=== PATIENT | female | born 1965 | race African-American/Black ===

== ENCOUNTER 2020-01-15 19:24 | Inpatient (IN) | payer OTHER ==
[~2020-01-15] VITALS: Ht 162.6 cm; Wt 47.1 kg
[2020-01-15 19:29] VITALS: BP 97/52
--- NOTE | 2020-01-15 21:12 | NUR ---
REQUESTED [facility] TO FAX MED LIST.
[2020-01-16 07:45] VITALS: BP 120/71
[2020-01-16 08:05] VITALS: BP 111/67
[2020-01-16 13:53] VITALS: BP 141/83
[2020-01-16 20:42] VITALS: BP 136/98
--- NOTE | 2020-01-16 21:06 | NUR ---
Pt. admitted from ER with hx of COVID and severe dementia. Admitted via [facility] from [facility]. Pt. repeatedly trying to get off cart, out of bed despited bed rails up X4, lurching, unsteady gait. Attempted to throw herself over rail but was caught by nurse. Medicated with 20mg geodon per order. Later in shift she was sitting in gerichair with lap justyna in place when she pushed herself upwards through the lapbuddy and half stood in chair with chair tipping back. 1:[address] Abdullahi, additional 20 mg geodon given per L buttock per order. Pt nonverbal most of shift with 1-2 word confused statements. Does eat without difficulty when fed, drank adequately with straw. No verbal/behaviors suggestive of SI/HI. Pt. sleeps in chair but quickly becomes noncompliant with safety precautions and demonstrates very unsafe behaviors. Breath sounds clear without s/o resp distress. Reg HR auscultated. Color pink with brisk capillary refill and palpable peripheral pulses. Yellow urine per brief. Active bowel sounds over soft, flat abdomen. reports wt loss of 16 # since September. Lurching, unsteady gait when she attempts to ambulate.
--- NOTE | 2020-01-17 05:32 | NUR ---
Assumed care of pt @ 1900. Pt calm et cooperative this shift. Took medication crushed in yogurt this shift. Ambulation not observed. VSWNL. health assessment with no abnormalities other than previously noted. Unable to assess SI/HI/AVH but pt does not demonstrate any signs or symptoms of acute emotional distress at present time. Currently resting in carlitos-chair with eyes open. Has 1:1 while awake for safety. Will continue to monitor per unit protocol.
[2020-01-17 12:10] VITALS: BP 136/82
--- NOTE | 2020-01-17 14:14 | NUR ---
Patient received PRN Zyprexa approximately 1.5 hours ago. Approximately 50% effective in reducing agitation and impulsive behaviors. Patient now becoming increasingly agitated. 1:1 sitter at side. Attempted to provide busy pad, speak to patient, play music. None of which has been effective. Spoke with Dr. Abdullahi. Order obtained for Ativan 1mg po 1x dose now for agitation.
--- NOTE | 2020-01-17 17:44 | NUR ---
1730 RESUMMED CARE FROM OVERNIGHT SHIFT THIS AM, PATIENT WAS BROUGHT UP FROM THE COVID FLOOR TO US. PATIENT IS A ONE TO ONE SHE WAS TRYING TO GET OUT OF BIRDIE CHAIR. PATIENT IS VERY IMPULSIVE AND WEAR A HELMET AND NEEDS CONSTANT MONITORING. PATIENT IS 51 AND HAS DEMENTIA WHICH SHE IS DECLINING AND WILL POSSIBLY NEED HOSPICE. PATIENTS ABDOMEN SOFT ROUND BOWEL SOUNDS PRESENT LUNGS CLEAR. PATIENT HAD A IM OF OLANZAPINE AT 1305 DUE TO AGITATION AND TRYING TO GET OUT OF LAP ALIREZA. PATIENT UNABLE TO TELL ME ABOUT SI/HI/AH/VH AT PRESENT DUE TO COGNITIVE AND DEMENTIA. PATIENT WAS MORE COOPERATIVE THIS EVENING AND SLEPT A FEW HOURS. WILL CONTINUE TO MONITOR PATIENT FOR SAFETY AND BEHAVIORS.
--- NOTE | 2020-01-17 19:25 | NUR ---
Alerts to name only. Pushing self up in recliner through lap justyna. Up with sitter walking with staggering gait in room. Occassional verbalization. Took meds whole with H2O and applesauce, eats well when being fed. Protective helmet in place, removed to inspect scalp, no skin irritations noted, helmet replaced. Breath sounds clear t/o, bilaterally equal. Reg HR auscultated. Color pale pink with brisk capillary refill and palpable peripheral pulses. Brief in place, incontinent of large, brown stool. Active bowel sounds over soft, flat abdomen, buttocks slightly reddened. Multiple bruises over arms with old scabs on shins. Midmorning nurse fishing manager Jatin brought pt with sitter back to [facility] d/t staffing issues.
[2020-01-17 19:42] VITALS: BP 121/63
--- NOTE | 2020-01-18 04:47 | NUR ---
Assumed care of pt @ 1900. Pt calm et cooperative this shift. Took medications crushed in pudding without difficulty. Ambulates with assistance of gerichair. VSWNL. Health assessment with no abnormalities noted at present time. Unable to assess SI/HI/AVH due to cognitive deficit but pt does not demonstrate any signs or symptoms of acute emotional distress at present time. [facility] with eyes closed. Will continue to monitor per unit protocol.
[2020-01-18 07:55] VITALS: BP 174/54
--- NOTE | 2020-01-18 12:34 | NUR ---
Care assumed of patient at 0715: Patient seated in carlitos chair with 1:1 sitter at side, at start of shift. Nonverbal, occasionally responds to name being called. Protective helmet in place throughout the shift. Restless, impulsive behaviors observed. Placing legs off side of chair, scooting buttock back in attempt to sit on top of chair, slide self forward, remove lap justyna. Needing several re-directions and assist by sitter. Patient eating breakfast and lunch well, fed by staff. Took AM medication crushed without difficulty. Patient incontinent of bladder. Resistive with kaushal care and linen change. Attempting to lower self to the floor and crawl several times. Patient was able to take a walk about the hallways with sitter for approximately 10 minutes then return back to chair.
--- NOTE | 2020-01-18 16:01 | H ---
[facility] [place] [address] HISTORY AND PHYSICAL Name: JOZEF COLE Room #: 528B-B ADM IN M.R.#: [id number] Admission: 01/16/20 Attend Phys: Shalom Abdullahi DO Discharge: Date of : 63 Report #: [id number] THIS REPORT FOR: cc: Iron Torres MD [facility] Dragan Landin Andrew H. DO ~ CC: Shalom Landin DATE OF SERVICE: 01/16/2020 INPATIENT PSYCHIATRIC EVALUATION ATTENDING PHYSICIAN: Shalom Abdullahi DO DOORSHAKER: Dr. Lobo. Of note, the patient has temporarily been housed in the Surgical Intensive Care Unit, room #225 due to her COVID positive status that has been determined to be historic and the patient does not need isolation. SOURCES OF INFORMATION: Telephone interview with the . Some notes from [facility]. The patient has very advanced dementia and can give no meaningful history or conversation. HISTORY OF PRESENT ILLNESS: This is a 54-year-old female sent out from [facility]. The patient was briefly brought to the Emergency Room at [facility] by accident. She received some basic lab work there and then was sent over to [place] for COVID-19 testing. According to the , the patient had been hospitalized at [facility] in April and then developed COVID infection, so she was there in May. He also states she became hypotensive, tachycardic due to haloperidol injection. I do not have a list of the patient's lab work from [facility]. The patient is nonverbal, which is her baseline. The patient was born in [place], [place], raised in [place]. She has three grown children. She has a bachelor's degree in [employer]. She worked for the [employer]. She developed early Alzheimer's dementia according to Yosvany in 2015. The patient did not have any history of tobacco or recreational drug use, some social drinking in the past prior to her dementia, does not have history of physical, sexual, or emotional abuse. She has been 30 years. According to the , there is no family history of mental illness or early dementia. VITAL SIGNS: Today; temperature 36.8, pulse 63, respirations 16, blood pressure 111/67, O2 sat 96%. [facility] [address] [place] [address] HISTORY AND PHYSICAL Name: JOZEF COLE Room #: 528B-B [facility] IN ..#: [id number] Admission: 01/16/20 Attend Phys: Shalom Abdullahi DO Discharge: Date of : 63 Report #: [id number] MENTAL STATUS EXAMINATION: This is a well-developed, ill-appearing female, wearing a helmet due to recurrent falls. Attention fair. Concentration impaired. Speech: Nonverbal. Thought process and thought content, unable to ascertain. The patient does respond to noxious stimuli. Unable to assess for suicidality, homicidality, auditory, visual, or tactile hallucination. Did not seem to be self harmful. Memory unable to test. Insight impaired, judgment impaired. Fund of knowledge well below average. ADDITIONAL PSYCHIATRIC HISTORY: Includes impulse disorder, unspecified anxiety disorder, dysphasia. MEDICATIONS: At assisted were as follows: Acetaminophen 650 mg p.o. 3 times a day for pain; Depakote 125 mg in the afternoon, 125 mg in the evening, 250 mg at bedtime, so she was on 250 b.i.d., I have increased that to 375 b.i.d. Other medications donepezil 10 mg oral daily for dementia, I have discontinued that. In addition adult suppository p.r.n., hydrocortisone cream 2.5% applied to rash as needed for rash, potassium chloride extended release 20 mEq by mouth 2 times a day, levothyroxine 125 mcg daily for hypothyroidism, lisinopril 40 mg p.o. daily for hypertension, magnesium citrate p.r.n., memantine 10 mg oral twice daily I have discontinue that, metronidazole cream for rash. She is on mirtazapine 7.5 mg at bedtime, Seroquel 50 mg p.o. at bedtime, trazodone 50 mg p.r.n. insomnia. She is also on olanzapine 5 mg q. 2 hours p.r.n. for agitation and anxiety. requests no code. ALLERGIES: CODEINE. Additional history from assisted, apparently she, according to Cristina, had thrown a couple televisions on the floor, had been restless, pacing and redirectable. states she has been akathisic for quite some time. She states that the TVs were not secured and she does exhibit what I would term stimulus-bound phenomenon where she sees something shiny or other people's food or stuff that smells good, she will grab at it. This is seen in advanced dementias particularly frontotemporal and some Alzheimer's cases. FORMULATION: A 54-year-old female tragic early Alzheimer's disease, really at almost advanced age with behavioral disturbance. DIAGNOSES: Major neurocognitive disorder due to early Alzheimer's disease with behavioral disturbance. ADDITIONAL DIAGNOSES: Include recent falls, hypertension, dysphasia. PLAN: Evaluate, stabilize, obtain collateral. Regarding her medications, we will increase Depakote to 375 mg Sprinkles twice per day, Seroquel will increase to 50 mg twice per day, will continue lisinopril 40 mg daily, Synthroid 125 mcg daily, trazodone 50 mg at bedtime p.r.n. Hospitalist is consulted. [facility] [address] [place] [address] HISTORY AND PHYSICAL Name: JOZEF COLE Room #: 528B-B ADM IN .R.#: [id number] Admission: 01/16/20 Attend Phys: Shalom Abdullahi DO Discharge: Date of : 63 Report #: [id number] ESTIMATED LENGTH OF STAY: 10-14 days. Monitor her periodically for laboratory changes. I will dictate an addendum with the labs done at [place] later. Time spent on this case is approximately 60 minutes, greater than 50% of time was coordination of care, review of records, discussion with . <ELECTRONICALLY SIGNED> By: Shalom Abdullahi DO 01/18/20 1601 1329 1515 Shalom Abdullahi, /nt
[2020-01-18 19:34] VITALS: BP 101/50
[2020-01-18 21:46] VITALS: BP 164/54
--- NOTE | 2020-01-19 08:28 | NUR ---
PT TOOK MEDS THIS AM CRUSHED IN YOGART. PT ABLE TO SAY ONE WORDS LIKE CRAZY. PT LUNGS CLEAR. PT HAS HELMENT ON FOR PROTECTION. PT ALERT THIS AM, NOT ABLE TO TELL ORIENTATION. PT LIKES TO GRAB AT STAFF WALKING BY. PT HAS LAP ALIREZA ON FOR FALL PROTECTION. PT DOES PUSH SELF UP IN THE CHAIR. PT NEEDS FEED DUE TO GRABBING AT THE TRAY.
[2020-01-19 09:00] VITALS: BP 111/53
--- NOTE | 2020-01-19 12:43 | NUR ---
AFTER LUNCH WALKED PT AROUND UNIT. PT DIDN'T WANT TO SIT ON THE TOILET. PT WAS INCON OF URINE FULL BRIEF. PT SKIN INTACT. PT ALLOWED X2 STAFF TO ASSIST IN CHANGING HER BRIEF AND NEW YELLOW SHIRT. PT HAS SPECIAL HELMENT ON FOR PROTECTION IF FALLS. PT WANTED TO LAY DOWN IN BED. PT LAYED DOWN AND COVERED WITH BLANKET. PT STILL 1:1 CARE WHILE AWAKE.
--- NOTE | 2020-01-19 15:14 | NUR ---
PT NAPPED AND GETTING UP AT THIS TIME. PT PUT IN BIRDIE CHAIR WITH NESSA LAY, PT HAS 1:1 CARE WHILE AWAKE.
[2020-01-19 20:49] VITALS: BP 99/44
--- NOTE | 2020-01-20 01:18 | NUR ---
Assumed care of patient this pm shift. Patient is confused. Alert and oriented to self. Patient takes medications crushed in pudding. Patient is considered a falls risk. Falls precautions in place. Patient is on a 1:1 with sitter. Assessment shows no signs of acute distress. Patient is mostly nonverbal and does not answer questions appropriately. Patient ambulates via wheel chair or carlitos chair. We will continue to monitor per hospital policy.
[2020-01-20 09:46] VITALS: BP 117/77
--- NOTE | 2020-01-20 19:43 | NUR ---
0700 ASSUMED CARE OF PATIENT, PATIENT IN DAYROOM AT THAT TIME WITH LAP ALIREZA IN PLACE WITH 1:1 AT CHAIR SIDE. PATIENT ATTEMPTING TO GET OUT OF CHAIR. PATIENT SITS QUIETLY AT TIMES. PATIENT INCONTIENENT AND ASSIT X1 WITH CARES. PATIENT EATS ALL MEALS WELL AND MEDICATIONS GIVEN CRUSHED WITHOUT DIFFICULTY. LS CLEAR, BS ACTIVE. PATIENT UNABLE TO ANSWER QUESTIONS.
[2020-01-20 20:31] VITALS: BP 93/54
--- NOTE | 2020-01-21 05:25 | NUR ---
Assumed care on 01/20/20 @ 19:30, seated in carlitos chair, being seated upright with feet on the floor. Lap justyna in place with opening in the front. VSS, lung sounds clear bilat. Cooperates with assessment, takes meds crushed in yogart, then finished the yogart, being fed. Incontinent of bladder. Says few words, but cooperative with following instructions. Slept well overnight, will continue to monitor as per unit protocol.
--- NOTE | 2020-01-21 10:29 | NUR ---
EDGARDO and Dr. Cowan participated in a phone meeting with the Pt's , Boyd Peterson. An update was given on the Pt and the recommendation for hospice. Mr. Peterson stated he would like to do some research on hospice companies and would get back with EDGARDO on the matter. Mr. Peterson was provided education about hospice. Mr. Peterson was informed the Pt would be ready for d/c by the end of the week. EDGARDO will follow up with the [facility] concerning Pt's level of care and preferred hospice companies.
--- NOTE | 2020-01-21 17:09 | NUR ---
EDGARDO spoke with Cinthia Ho, , admissions at [facility]. EDGARDO provided a verbal update on the Pt and informed of the recommendation for hospice. Cinthia stated she would send out the referrals for hospice to [facility]. Cinthia stated she would inform EDGARDO which company would be providing service upon approval. Cinthia did share a concern about the Pt's behaviors. EDGARDO informed Cinthia about Dr. Cowan perscribing scheduled ativan to assist with calming and reduction of behaviors. EDGARDO also informed that it has been observed that since this addition Pt has been calmer and compliant with cares. Cinthia did not have any questions concerning this matter and stated they could accept the Pt back on Monday. D/C scheduled for 01/27/2020 @1030am. EDGARDO will schedule transportation with [facility].
--- NOTE | 2020-01-21 19:26 | NUR ---
0700 ASSUMED CARE OF PATIENT, PATIENT IN DAYROOM IN BIRDIE CHAIR. PATIENT ATTEMPT TO GET OUT OF CHAIR MULTIPLE TIME. 1:1 AT CHAIR SIDE. PATIENT TAKES MEDICATION CRUSHED WITHOUT DIFFICULTY. EATS ALL MEALS 100%. SLEEPS IN CHAIR OFF AND ON. VS WNL. PATIENT UNABLE TO ANSWER QUESTION. FALL RISK IN PLACE WITH LAP ALIREZA ON AND YELLOW SHIRT ON.
[2020-01-21 19:53] VITALS: BP 133/54
--- NOTE | 2020-01-22 03:11 | NUR ---
Assumed care of patient this pm shift. Patient is mostly nonverbal. She does speak out intermittently but does not answer questions appropriately. Patient does not appear to have hi/si. Patient does not appear to be in pain. Patient takes medications crushed in applesauce or pudding. Patient is not continent of bowel or bladder. Patient is considered a falls risk. Falls precautions are in place. Patient is a 1:1. Assessment shows no signs of acute distress. Vital signs are stable. Affect is variable. We will continue to monitor per hospital policy.
--- NOTE | 2020-01-22 13:07 | NUR ---
ASSUMED CARE AT 0700 THIS MORNING. PT. SLEEPY THIS MORNING IN A RECLINGING CHAIR. AFTER BREAKFAST, SHE WAS TAKEN TO HER ROOM AND JULIOCESAR CARE PERFORMED BY 2 STAFF. SHE REMAINED SLEEPY AND FELL ASLEEP IN HER BED AND WAS ALLOWED TO REST FOR ABOUT 1.5 HOURS. SHE THEN BECAME RESTLESS AND WAS GOTTEN UP INTO THE RECLINING CHAIR AND TAKEN TO THE DINING ROOM. SHE EATS WELL, AND TOOK HER MEDICATIONS WITHOUT PROBLEMS NOTED. SHE HAS BEEN RESTLESS THIS AFTERNOON.
--- NOTE | 2020-01-22 17:39 | NUR ---
ASSUMED CARE AT 0700 THIS MORNING. PT. UP IN RECLINING CHAIR, SLEEPING. SHE ATE BREAKFAST AND THEN WENT TO BED AND SLEPT MOST OF THE MORNING. SHE ATE WELL AT LUNCH AND ATE 60 % SUPPER. SHE HAS BEEN SLEEPY TODAY. SHE HAS BEEN CHANGED SEVERAL TIMES TODAY. SHE HAS BEEN 1:1 WHILE AWAKE.
[2020-01-22 19:42] VITALS: BP 117/47
--- NOTE | 2020-01-23 01:47 | NUR ---
PATIENT SAT PARTIALLY RECLINED IN DAYROOM SLEEPING OFF AND ON TONIGHT. SHE HAS BEEN DROWSY. SHE HAD APPLESAUCE FOR HS SNACK AND WATER. SHE TOOK HER HS MEDS CRUSHED IN APPLESAUCE ALSO. SHE DOES NEED FEEDING ASSISTANCE. INCONTINENCE CARES DONE. PATIENT HAS WHAT APPEARS TO BE AN OLD PERMANENT OPENING IN THE SKIN MAYBE WHERE A CYST BEEN AT END OF TAIL BONE. NO REDNESS OR DRAINAGE. PATIENT CONTINUES TO BE A 1:1 WA. PATIENT PLACED IN BED AROUND 2230 TONIGHT AND 1:1 SELF SEALING FUEL TANK BUILDERNICOLAS STAYED WITH PATIENT UNTIL SHE FELL ASLEEP. PATIENT IS BEING REPOSITIONED FOR COMFORT. BED IN LOW POSITION AND BED RAILS UP WITH BED ALARM ON D/T PATIENT IS A FALL RISK AND VERY IMPULSIVE. SHE IS A/O TO SELF ONLY. SHE OCCASIONALLY WILL ANSWER YES AND NO QUESTIONS. VSS. WAS TOLD BY DAYS THAT SHE ATE 100% AT MEALS. NO BM SO FAR TONIGHT. FREQUENT ROUNDING TO ASSESS SAFETY AND STATUS OF PATIENT. PT DENIES PAIN AND DOES NOT APPEAR TO HAVE ANY BASED ON BODY LANGUAGE. NO SI/HI/AVH EVIDENCE NOTED TONIGHT.
[2020-01-23 06:07] VITALS: BP 116/56
[2020-01-23 08:08] VITALS: BP 140/77
--- NOTE | 2020-01-23 08:30 | NUR ---
PT SITTING OUT IN DINING ROOM AND NEEDING FED BREAKFAST. PT EATING WELL. PT DRINKING THIN LIQUIDS WITHOUT ISSUES. PT TAKING MEDS IN YOGART CRUSHED. PT LUNGS CLEAR WITHOUT COUGH. PT HAS SCRATCHES AND BRUISES OF DIFFERENT STAGES TO LOWER EXT. PT NON-VERBAL AT THIS TIME.
--- NOTE | 2020-01-23 13:04 | NUR ---
PT IS VERY SEDATED RESTING IN RECLINER CHAIR. HELD LORAZEPAM 1MG PO AT THIS TIME. DR. IGLESIAS AWARE.
--- NOTE | 2020-01-23 16:50 | NUR ---
PT EYES OPEN AND LOOKING AROUND. PT SITTING UP IN CHAIR TRYING TO GET OUT OF CHAIR. PT HAS LAP ALIREZA ON FOR FALL PROTECTION.
[2020-01-23 19:45] VITALS: BP 93/42
--- NOTE | 2020-01-24 01:58 | NUR ---
Assumed care on 01/23/20 @ 19:15, seated in carlitos chair in the day room with lap justyna on, fastened in the front. Is a fall risk, and dressed in a yellow shirt and socks. Compliant with medication crushed in pudding. Cannot answer mental health assessment questions, and is predominately non-verbal. Incontinent of Bowel and bladder, given incontinent care several times. Feeder, provided snack which she ate 100% at HS. Retired to bed @ , bed in low position, bed alarm set. Will continue to monitor often as per unit protocol.
[2020-01-24 09:22] VITALS: BP 112/70
--- NOTE | 2020-01-24 11:31 | NUR ---
RT Progress Note- Gabriella is not an active participant in either the milieu or recreation groups d/t cognition. LAB ASST has instead worked with pt 1;1 to provide sensory activities including music and a sensory mat. Patient facial expressions unchanged overall during music and observed to attempt to eat the sensory mat. Patient does respond to socialization by reaching out for physical contact, but does not make appropriate eye contact. LAB [facility]ST will continue to provide 1;1 support during her admission.
--- NOTE | 2020-01-24 13:24 | NUR ---
EDGARDO spoke with Pt's , Yosvany Peterson. He informed he would transport Pt to [facility]. Yosvany stated he would be here at 9am on 01/27/20. Time informed he will utilize [facility] hospice .
[2020-01-24 15:12] VITALS: BP 112/70
--- NOTE | 2020-01-24 15:30 | NUR ---
ASSUMED CARE AT 0700 THIS MORNING. PT. HAS BEEN IN THE RECLINING CHAIR MUCH OF THE DAY. SHE HAS BEEN RESTING MUCH OF THE TIME. AT TIMES SHE IS REALLY RESTLESS. SHE WILL EAT WELL. SHE TAKES HER MEDICATIONS CRUSHED AND IN PUDDING OR APPLESAUCE. NO PROBLEM NOTED.
[2020-01-24 19:45] VITALS: BP 111/60
--- NOTE | 2020-01-25 05:39 | NUR ---
ASSUMED CARE OF PT AT 1900. PT IS A/O X1 AND IS UNABLE TO STAND OR BEAR WEIGHT ON HER FEET. APPEARS VERY LETHARGIC AND HAS A VERY FLAT EFFECT. APPEARS RESTLESS AND MOVES AROUND A LOT. IS NON VERBAL AND DOES NOT ANSWER TO QUESTIONS. USES THE ASSISTANCE OF A BIRDIE CHAIR WITH A GAITBELT FOR SAFETY. MEDICATIONS WERE GIVEN CRUSHED IN PUDDING. INCONTINENT OF BOWEL AND BLADDER. WEARS A PULL UP. AT THIS TIME PT IS LYING IN HER BED AND APPEARS TO BE SLEEPING. WILL CONTINUE TO MONITOR. CANNOT ASSESS FOR SI/HI OR AVH DUE TO MENTAL STATUS AND PT IS NOT RESPONDING VERBALLY.
[2020-01-25 10:47] VITALS: BP 111/50
[2020-01-25 20:22] VITALS: BP 99/62
--- NOTE | 2020-01-25 20:45 | NUR ---
Able to state name only. Spent most of day sleeping in recliner with lap justyna on. At times difficult to wake up, 1700 dose of lorazepam held d/t somulence. More awake and alert at end of shift. Decreased PO intake t/o day, diet changed to mechanical chopped. Requires feeding for PO intake. Breath sounds clear. Reg HR auscultated. Color pink with brisk capillary refill and palpable peripheral pulses. Active bowel sounds over soft, flat abdomen. Multiple bruises/scabs over arms and legs. Buttocks slightly pink, no skin breakdown.
--- NOTE | 2020-01-26 04:40 | NUR ---
ASSUMED CARE OF PT AT 1900. PT IS A/O X1 AND IS A MAX ASSIST TO THE BIRDIE CHAIR. RESTLESS AND ANXIOUS. LAP ALIREZA USED WHILE IN CHAIR FOR SAFETY. ROOM AIR. PT ANSWERS AT TIMES BUT IS AT TIMES NON-VERBAL. PT AT THIS TIME IS LYING IN HER BED AND APPEARS TO BE SLEEPING. WILL CONTINUE TO MONITOR.
[2020-01-26 11:29] VITALS: BP 102/53
--- NOTE | 2020-01-26 14:52 | NUR ---
PATIENT CARE ASSUMED AT 0700 - PATIENT WAS SLEEPING IN BIRDIE CHAIR IN DINING MCKNIGHT AT ARRIVAL ON UNIT. SHE WAS SLEEPING AT THIS TIME. AWOKE FOR BREAKFAST - POOR APPETITE - ALET TO SELF - UNABLE TO RESPOND TO QUESTIONS ADDRESSED TO HER. STAFF ASSISTED WITH FEEDING. MORNING MEDICATIONS ADMINISTERED CRUSHED IN APPLESAUCE. PATIENT WAS RESTLESS EARLY ON IN MORNING - ATTEMPTING TO CLIMB OUT OF BIRDIE CHAIR. STAFF HAD TO REDIRECT - AFTER MEDICATION PASSED PATIENT BECAME SEDATED ONCE AGAIN. HELD ATIVAN SCHEDULED AT 1300 SINCE PATIENT WAS SLEEPING ONCE AGAIN. PATIENT CURRENTLY SLEEPING IN CHAIR - STAFF MONITORING IN DINING MCKNIGHT.
[2020-01-26 20:00] VITALS: BP 105/87
--- NOTE | 2020-01-27 02:46 | NUR ---
PATIENT WAS UP IN BIRDIE CHAIR WITH LAP ALIREZA ON AND FASTENED IN THE FRONT. PATIENT RESPONDS TO NAME. SHE KEPT LOOKING UP TOWARDS CEILING IN DINING ROOM TONIGHT. I ASKED HER IF SHE WAS SEEING SOMETHING. SHE MUMBLED YES AND THEN OTHER SPEECH I COULD NOT UNDERSTAND. BELIEVE PATIENT MAY HAVE BEEN HAVING VISUAL HALLUCINATION. SHE REMAINED CALM AND QUIET THIS EVENING. PATIENT WAS GIVEN HER MEDS CRUSHED IN PUDDING. PATIENT DID EAT ALL OF HER PUDDING AND HAD 240ML OF WATER TO DRINK. INCONTINENCE CARES DONE ROUTINELY. NO BM SO FAR TONIGHT BUT HAS BEEN INCONTINENT. BARRIER CREAM APPLIED TO BONY RED AREA OF BUTTOCKS FROM SITTING. PATIENT APPEARS TO BE RESTING COMFORTABLY WITH EYES CLOSED IN BED. SIDE RAILS UP. TYLENOL 650MG PO GIVEN FOR COMFORT TO REST AND POSSIBLE GENERALIZED PAIN /. PT HAD TRAZADONE PO ALSO. ROUTINE ROUNDS TO ASSESS SAFETY AND STATUS OF PATIENT. WILL CONTINUE TO MONITOR.
--- NOTE | 2020-01-27 05:12 | NUR ---
PATIENT BECOMING RESTLESS IN BED AT 0430. INCONTINENCE CARES DONE. PATIENT HAS VOIDED 3 TIMES THRU NIGHT WITHOUT BM. PATIENT WAS CLEANED AND NEW BRIEF AND CLOTHES APPLIED. PATIENT UP IN BIRDIE CHAIR WITH CHAIR ALARM ON AND WORKING AND BIRDIE CHAIR LOCKED. PATIENT SITTING IN DINING ROOM. PATIENT HAS LAP ALIREZA ON FOR SAFETY AND IS SITTING QUIETLY WITH EYES CLOSED. SHE DOES RESPOND TO HE NAME AND DOES ANSWER SOME YES/NO QUESTIONS. PATIENT'S , [facility] TO PICK PATIENT UP AT 0900 TO TRANSFER TO [facility] TO BE PLACED ON HOSPICE WITH [facility]. CONTINUING TO MONITOR.
[2020-01-27 07:47] VITALS: BP 108/62
[2020-01-27] MEDS ORDERED: ACCUPRIL40 MG PO (08:44)
[2020-01-27] MEDS ORDERED: SEROQUEL 100 M100 M1 PO (08:45)
[2020-01-27] MEDS ORDERED: DEPAKOTE SPRIN125 MG PO (08:45)
[2020-01-27] MEDS ORDERED: K-DUR 20 MEQ T20 MEQ PO (08:46)
[2020-01-27] MEDS ORDERED: LORAZEPAM 1 MG T1 MG PO (08:46)
[2020-01-27] MEDS ORDERED: SYNTHROID125 MC1 PO (08:47)
[2020-01-27] MEDS ORDERED: MIRALAX17 GM PO (08:47)
--- NOTE | 2020-01-27 10:50 | NUR ---
ASSUMED CARE AT 0700 THIS MORNING. PT. UP IN RECLINING CHAIR. MEDICATIONS, CRUSHED AND GIVEN TO PT. IN PUDDING. SHE TOOK THE MEDICATIONS WITHOUT PROBLEMS. SHE WAS CLEANED UP. HER WAS HERE TO POWER GENERATION TURBINE ROOM OPERATOR THE PT. TO TRANSPORT TO [facility]. [facility]. ALL HER BELONGS, SCRIPTS, D/C SUMMARY, SENT WITH HER. THEY LEFT IN THE FAMILY VEHICLE.
--- NOTE | 2020-01-28 23:07 | D ---
[facility] [place] [address] DISCHARGE SUMMARY Name: JOZEF COLE Room #: 528B-B DIS IN M.R.#: [id number] Admission: 01/16/20 Attend Phys: Shalom Abdullahi DO Discharge: 01/27/20 Date of : 63 Report #: [id number] THIS REPORT FOR: cc: Iron Torres MD [facility] Dragan Landin Andrew H. DO ~ DATE OF SERVICE: 01/27/2020 INPATIENT PSYCHIATRIC DISCHARGE SUMMARY ATTENDING PSYCHIATRIST: Shalom Abdullahi DO. [employer] REPAIRER: Aguila Zamora MD DISCHARGE DIAGNOSES: Major neurocognitive disorder, likely due to early Alzheimer's disease, end-stage, with behavioral disturbance, improved. ADDITIONAL DIAGNOSES: As follows, hypertension, on lisinopril; hypothyroidism, on Synthroid; severe protein-calorie malnutrition due to the dementia. DISCHARGE PLAN: The patient is discharging back to [facility] in [place], [place] . PROGNOSIS: Poor to terminal. DISCHARGE DIET: Mechanical, chopped, thin liquids. The patient requires feeding assistance. Gait is assisted, but she sits mainly. DISCHARGE MEDICATIONS: As follows, lisinopril 40 mg p.o. daily for hypertension, hold if systolic blood pressure less than 100; Depakote Sprinkles 500 mg p.o. b.i.d. for mood stabilization; quetiapine fumarate 100 mg p.o. b.i.d.; lorazepam 1 mg p.o. at 0600, 1300, 1800, hold if oversedation; potassium chloride 20 mEq p.o. b.i.d. for supplementation; polyethylene glycol 17 g p.o. daily dissolved in 8 ounces of water for bowel motility; levothyroxine 125 mcg oral daily. The patient's medical and psychiatric care will be provided by the receiving facility. PERTINENT LABORATORY WORK: From this admission, Depakote level on January 25 was 65. COVID-19 PCR serology was positive, but she has been persistently positive so isolation was not required. REASON FOR ADMISSION: Back on 26 of January is as follows: The patient was originally brought to [facility]. Basic lab work was done there. [facility] [address] [place] [address] DISCHARGE SUMMARY Name: JOZEF COLE Room #: 528B-B [facility] IN M.R.#: [id number] Admission: 01/16/20 Attend Phys: Shalom Abdullahi DO Discharge: 01/27/20 Date of : 63 Report #: [id number] Apparently, she had been nonredirectable, throwing things including television. This was somewhat refuted by her stating that the television to the nursing facility were not clamped down, secured and were easily dislodged by a dementia patient. HOSPITAL COURSE: The patient was admitted to Geriatric Psychiatry Unit. The patient had a fairly uneventful stay. We increased her Depakote, titrate her on Seroquel to the discharge doses mentioned. Lap justyna was required fairly often as the patient was attempting to get up in an unsafe manner. Unfortunately, other than feeding well, the patient was not able to participate due to the grave degree of her dementia. She is mostly nonverbal, occasionally will say some phrases. The was counseled by myself and social service director that it is time for hospice services to be initiated. He agreed to have that done in the nursing facility. CONDITION ON DISCHARGE: Again poor, but expected given her progressive dementia. PHYSICAL EXAMINATION: VITAL SIGNS: On the day of discharge, temperature 36.5, pulse 72, respirations 16, BP 108/60, O2 sat 92%. MUSCULOSKELETAL: Seated in chair. MENTAL STATUS EXAMINATION: This is a well-developed, unkempt female appearing much older than stated age. Attention limited. Concentration limited. Speech intermittent at best. Thought process and thought content were frequently nonlinear. Intermittent psychomotor agitation. No psychomotor retardation. Unable to assess well for suicidality or homicidality, but no self-harm behavior to others was noted at the time of discharge. Again, difficult to assess well for external stimuli, auditory, visual, or tactile hallucinations, but they suspected. Memory grossly impaired. Insight impaired, judgment impaired. Fund of knowledge below average. PROGNOSIS: For this patient is poor to terminal with less than 6 months life expectancy. <ELECTRONICALLY SIGNED> By: Shalom Abdullahi DO 01/28/20 [id number] Shalom Abdullahi DO /nt
== END 2020-01-27 09:00 | disposition hospice, home (50) | DRG 56 ==
LOC: ER 19:24 → SICU 01-16 08:02 → SBH 01-16 08:02 → SICU 01-16 08:05 → SBH 01-17 10:50
PROVIDERS: ADMIT Psychiatry & Neurology Psychiatry; ATTEND Psychiatry & Neurology Psychiatry
DX: G30.0 Alzheimer's disease with early onset (principal); F02.81 Dementia in other diseases classified elsewhere, unspecified severity, with behavioral disturbance; E43 Unspecified severe protein-calorie malnutrition; U07.1 COVID-19; F01.51 Vascular dementia, unspecified severity, with behavioral disturbance; Z68.1 Body mass index [BMI] 19.9 or less, adult; I10 Essential (primary) hypertension; E03.9 Hypothyroidism, unspecified; F41.9 Anxiety disorder, unspecified; R62.7 Adult failure to thrive; Z51.5 Encounter for palliative care
CPT/HCPCS: 10880; 15000